=== PATIENT | male | born 1990 | race Two or more races ===

== ENCOUNTER 2021-10-11 10:31 | Emergency (ER) | payer BC ==
[~2021-10-11] VITALS: Ht 185.4 cm; Wt 81.6 kg
--- NOTE | 2021-10-11 10:57 | NUR ---
PT WAS EVALUATED BY DR COLVIN. PT WAS D/C'd TO HOME. D/C INSTRUCTIONS GIVEN TO THE PT BY DR COLVIN.
[2021-10-11 10:59] VITALS: BP 135/78
== END 2021-10-11 10:59 | disposition home or self-care (01) ==
LOC: ER 10:35
DX: S01.112A Laceration without foreign body of left eyelid and periocular area, initial encounter (principal); W01.0XXA Fall on same level from slipping, tripping and stumbling without subsequent striking against object, initial encounter; Y92.831 Amusement park as the place of occurrence of the external cause
CPT/HCPCS: 12011; 99282; J3490; A4663